=== PATIENT | male | born 1940 | race Two or more races ===

== ENCOUNTER 2019-02-01 18:38 | Emergency (ER) | payer OTHER ==
[~2019-02-01] VITALS: Ht 170.2 cm; Wt 79.4 kg
[2019-02-01 19:17] VITALS: BP 129/71
[2019-02-01] MEDS ORDERED: LACTULOSE 20Gm/30ML SOLN PO ONE (21:30)
== END 2019-02-01 21:32 | disposition home or self-care (01) ==
LOC: ER 18:38
DX: K59.00 Constipation, unspecified (principal); I10 Essential (primary) hypertension; E11.9 Type 2 diabetes mellitus without complications; Z88.0 Allergy status to penicillin
CPT/HCPCS: 74018; 82962

== ENCOUNTER 2023-06-21 11:29 | Emergency (ER) | payer OTHER ==
[~2023-06-21] VITALS: Ht 170.2 cm; Wt 70.3 kg
[2023-06-21 13:13] VITALS: BP 143/86; PULSE 71; RESP 18; TEMP 97.8; O2SAT 100
[2023-06-21] MEDS ORDERED: ACET-1080 PO (13:23)
[2023-06-21] MEDS: ACETAMINOPHEN 500 MG TAB PO ONE (13:34)
== END 2023-06-21 13:48 | disposition home or self-care (01) ==
LOC: ER 11:29
DX: S22.32XA Fracture of one rib, left side, initial encounter for closed fracture (principal); Z88.0 Allergy status to penicillin; W03.XXXA Other fall on same level due to collision with another person, initial encounter; Y93.89 Activity, other specified; Y92.89 Other specified places as the place of occurrence of the external cause; Y99.8 Other external cause status
CPT/HCPCS: 71101

== ENCOUNTER 2023-07-20 17:03 | Inpatient (IN) | payer OTHER ==
[~2023-07-20] VITALS: Ht 170.2 cm; Wt 70.6 kg
[~2023-07-20 17:03] MED LIST: ACET-1080 PO
[2023-07-20 19:36] LABS: Basophils # (auto) 0 10 ^3/uL (0-0.2); Basophils % (auto) 0.4 % (0.0-2.0); Eosinophils # (auto) 0.2 10 ^3/uL (0-0.8); Eosinophils % (auto) 2.1 % (0.0-7.0); Hematocrit 39.1 % (41.0-53.0); Hemoglobin 13.3 g/dL (13.5-17.5); Lymphocytes # (auto) 1.4 10 ^3/uL (0.4-5.4); Lymphocytes % (auto) 14.7 % (10.0-50.0); Mean Corpuscular Hemoglobin 30.6 pg (28.0-32.0); Mean Corpuscular Volume 89.9 fL (80.0-100.0); Monocytes # (auto) 1.5 10 ^3/uL (0-1.3); Monocytes % (auto) 16.1 % (0.0-12.0); Neutrophils # (auto) 6.2 10 ^3/uL (1.6-8.6); Neutrophils % (auto) 66.7 % (37.0-80.0); Red Blood Cells 4.35 10^6/uL (4.5-5.90); Red Cell Distribution Width 15.6 % (11.8-14.3); White Blood Cell 9.3 10^3/uL (4.4-10.8)
[2023-07-20 19:57] LABS: Alanine Aminotransferase 20 U/L (7-40); Albumin 4.2 g/dL (3.2-4.8); Alkaline Phosphatase 155 U/L (46-116); Anion Gap 5 (5-15); Aspartate Aminotransferase 17 U/L (13-40); BUN/Creatinine Ratio 21.6 (10.0-20.0); Blood Urea Nitrogen 21 mg/dL (9-23); Calcium 8.8 mg/dL (8.5-10.1); Carbon Dioxide 28 mmol/L (20-30); Chloride 107 mmol/L (98-107); Glucose 135 mg/dL (74-106); Potassium 3.7 mmol/L (3.5-5.1); Sodium 140 mmol/L (136-145)
[2023-07-20 19:58] LABS: Bilirubin, Total 0.4 mg/dL (0.2-1.0); Total Protein 7.1 g/dL (5.7-8.2)
[2023-07-20] MEDS ORDERED: ONDANSETRON HCL 4 MG/2 ML VIAL IV PRN (22:30)
[2023-07-20] MEDS ORDERED: DOCUSATE SOD 100 MG CAP PO PRN (22:30)
[2023-07-20] MEDS ORDERED: MORPHINE SULFATE INJ 2 MG/ml SYRG IV PRN ×2 (22:30→23:45)
[2023-07-20] MEDS ORDERED: ACETAMINOPHEN 325 MG TAB PO PRN (22:30)
[2023-07-20] MEDS ORDERED: NITROGLYCERIN 0.4 MG SL TAB SL PRN (23:45)
[2023-07-21] VITALS (8 sets, daily range): BP systolic 127–166; BP diastolic 69–87; PULSE 62–83; RESP 16–20; TEMP 97.4–98.3; O2SAT 98–100
[2023-07-21] MEDS: IOHEXOL 350 MG/ML 100ML IJ ONE (01:02)
[2023-07-21] MEDS: HYDROcodone-ACET 5/325MG TAB PO PRN (04:21)
[2023-07-21] MEDS: SODIUM CHLOR 0.9% PF (SALINE LOCK) 10ML VIAL/SYR IV SCH (05:25)
[2023-07-21] MEDS ORDERED: ASPI-543 PO (05:38)
[2023-07-21] MEDS ORDERED: METO25TA93 PO (05:38)
[2023-07-21] MEDS ORDERED: LISI40TA16 PO (05:38)
[2023-07-21] MEDS ORDERED: ATOR-507 PO (05:39)
[2023-07-21 05:48] LABS: Alanine Aminotransferase 13 U/L (7-40); Albumin 3.9 g/dL (3.2-4.8); Alkaline Phosphatase 132 U/L (46-116); Anion Gap 3 (5-15); Aspartate Aminotransferase 13 U/L (13-40); BUN/Creatinine Ratio 20.2 (10.0-20.0); Bilirubin, Total 0.5 mg/dL (0.2-1.0); Blood Urea Nitrogen 20 mg/dL (9-23); Calcium 8.6 mg/dL (8.5-10.1); Carbon Dioxide 30 mmol/L (20-30); Chloride 109 mmol/L (98-107); Glucose 96 mg/dL (74-106); Potassium 3.5 mmol/L (3.5-5.1); Sodium 142 mmol/L (136-145); Total Protein 6.7 g/dL (5.7-8.2)
[2023-07-21 06:05] LABS: Basophils # (auto) 0 10 ^3/uL (0-0.2); Basophils % (auto) 0.4 % (0.0-2.0); Eosinophils # (auto) 0.2 10 ^3/uL (0-0.8); Eosinophils % (auto) 2.1 % (0.0-7.0); Hematocrit 36.7 % (41.0-53.0); Hemoglobin 12.5 g/dL (13.5-17.5); Lymphocytes # (auto) 1.3 10 ^3/uL (0.4-5.4); Lymphocytes % (auto) 16.2 % (10.0-50.0); Mean Corpuscular Hemoglobin 30.4 pg (28.0-32.0); Mean Corpuscular Volume 89.5 fL (80.0-100.0); Monocytes # (auto) 1.4 10 ^3/uL (0-1.3); Monocytes % (auto) 17.8 % (0.0-12.0); Neutrophils % (auto) 63.5 % (37.0-80.0); Nucleated Red Blood Cells % 0.1 %; Red Cell Distribution Width 15.1 % (11.8-14.3); White Blood Cell 7.9 10^3/uL (4.4-10.8)
[2023-07-21] MEDS: METOPROLOL TARTRATE 25 MG TAB PO SCH (08:59)
[2023-07-21] MEDS: ENOXAPARIN SOD 40 MG/0.4 ML SYRINGE SC SCH (08:59)
[2023-07-21] MEDS: hydrALAZINE HCL 20 MG/ML VL IV PRN (15:07)
[2023-07-21] MEDS: ATORVASTATIN 20 MG TAB PO SCH (21:48)
[2023-07-22 05:00] VITALS: BP 138/55; PULSE 64; RESP 16; TEMP 98.5; O2SAT 100
[2023-07-22 08:00] VITALS: PULSE 69; RESP 18; O2SAT 99
[2023-07-22 08:27] VITALS: BP 133/74; PULSE 69; RESP 18; TEMP 98.4; O2SAT 99
[2023-07-22 10:40] VITALS: BP 133/74; PULSE 69; RESP 18; TEMP 98.4; O2SAT 99
== END 2023-07-22 12:15 | disposition home or self-care (01) | DRG 563 ==
LOC: ER 17:03 → TELE 23:34 → TELE-CENTR 07-21 03:46
PROVIDERS: ADMIT Internal Medicine Geriatric Medicine; ATTEND Internal Medicine Geriatric Medicine
DX: S52.614A Nondisplaced fracture of right ulna styloid process, initial encounter for closed fracture (principal); S22.42XA Multiple fractures of ribs, left side, initial encounter for closed fracture; S52.501A Unspecified fracture of the lower end of right radius, initial encounter for closed fracture; R91.8 Other nonspecific abnormal finding of lung field; M47.892 Other spondylosis, cervical region; Z88.0 Allergy status to penicillin; W01.0XXA Fall on same level from slipping, tripping and stumbling without subsequent striking against object, initial encounter; Y93.89 Activity, other specified; Y92.098 Other place in other non-institutional residence as the place of occurrence of the external cause; Y99.9 Unspecified external cause status
CPT/HCPCS: 36415; 70450; 71250; 71275; 72125; 73070; 73090; 73110; 73130; 74176; 80053; 83605; 83880; 84484; 85025; 85379; 87040; G0378

== ENCOUNTER 2023-10-08 13:09 | Inpatient (IN) | payer OTHER ==
[~2023-10-08] VITALS: Ht 165.1 cm; Wt 68.2 kg
[~2023-10-08 13:09] MED LIST changes: +ASPI-543 PO; +ATOR-507 PO; +LISI40TA16 PO; +METO25TA93 PO
[2023-10-08] MEDS: SODIUM CHLORIDE 0.9% 500 ML IVB ONE (14:48)
[2023-10-08 14:50] LABS: Basophils # (auto) 0.1 10 ^3/uL (0-0.2); Basophils % (auto) 1.2 % (0.0-2.0); Eosinophils # (auto) 0.2 10 ^3/uL (0-0.8); Eosinophils % (auto) 2.5 % (0.0-7.0); Hematocrit 40.8 % (41.0-53.0); Lymphocytes # (auto) 1.4 10 ^3/uL (0.4-5.4); Lymphocytes % (auto) 19.4 % (10.0-50.0); Mean Corpuscular Hemoglobin 29.9 pg (28.0-32.0); Mean Corpuscular Hgb Conc. 34.2 g/dL (32.0-36.0); Mean Corpuscular Volume 87.3 fL (80.0-100.0); Monocytes # (auto) 0.8 10 ^3/uL (0-1.3); Monocytes % (auto) 10.5 % (0.0-12.0); Neutrophils # (auto) 4.8 10 ^3/uL (1.6-8.6); Neutrophils % (auto) 66.4 % (37.0-80.0); Platelet Count (auto) 255 10^3/uL (140-450); Red Blood Cells 4.67 10^6/uL (4.5-5.90); Red Cell Distribution Width 14.5 % (11.8-14.3); White Blood Cell 7.2 10^3/uL (4.4-10.8)
[2023-10-08 15:09] LABS: Chloride 107 mmol/L (98-107); Potassium 4.4 mmol/L (3.5-5.1); Sodium 141 mmol/L (136-145)
[2023-10-08 15:10] LABS: Anion Gap 3 (5-15); Carbon Dioxide 31 mmol/L (20-30)
[2023-10-08 15:11] LABS: Calcium 8.8 mg/dL (8.7-10.4)
[2023-10-08 15:15] LABS: BUN/Creatinine Ratio 14.9 (10.0-20.0); Blood Urea Nitrogen 14 mg/dL (9-23); Glucose 82 mg/dL (74-106)
[2023-10-08] MEDS ORDERED: DOCUSATE SOD 100 MG CAP PO PRN (20:30)
[2023-10-08] MEDS ORDERED: ACETAMINOPHEN 325 MG TAB PO PRN (20:30)
[2023-10-08] MEDS ORDERED: MORPHINE SULFATE INJ 2 MG/ml SYRG IV PRN (20:30)
[2023-10-08] MEDS ORDERED: HYDROcodone-ACET 5/325MG TAB PO PRN (20:30)
[2023-10-08] MEDS ORDERED: ONDANSETRON HCL 4 MG/2 ML VIAL IV PRN (20:30)
[2023-10-08] MEDS ORDERED: NITROGLYCERIN 0.4 MG SL TAB SL PRN (20:30)
[2023-10-08] MEDS: SODIUM CHLOR 0.9% PF (SALINE LOCK) 10ML VIAL/SYR IV SCH (23:14)
[2023-10-08] MEDS: ATORVASTATIN 20 MG TAB PO SCH (23:14)
[2023-10-09] MEDS: LOPERAMIDE HCL 2 MG CAP/TAB PO ONE (03:49)
[2023-10-09 05:07] LABS: Basophils # (auto) 0 10 ^3/uL (0-0.2); Basophils % (auto) 0.5 % (0.0-2.0); Eosinophils # (auto) 0.1 10 ^3/uL (0-0.8); Eosinophils % (auto) 1.5 % (0.0-7.0); Hematocrit 38.6 % (41.0-53.0); Hemoglobin 13.3 g/dL (13.5-17.5); Lymphocytes # (auto) 1.1 10 ^3/uL (0.4-5.4); Lymphocytes % (auto) 14.7 % (10.0-50.0); Mean Corpuscular Hemoglobin 29.8 pg (28.0-32.0); Mean Corpuscular Hgb Conc. 34.3 g/dL (32.0-36.0); Mean Corpuscular Volume 86.8 fL (80.0-100.0); Monocytes # (auto) 0.7 10 ^3/uL (0-1.3); Monocytes % (auto) 9.4 % (0.0-12.0); Neutrophils # (auto) 5.4 10 ^3/uL (1.6-8.6); Neutrophils % (auto) 73.9 % (37.0-80.0); Platelet Count (auto) 233 10^3/uL (140-450); Red Blood Cells 4.45 10^6/uL (4.5-5.90); Red Cell Distribution Width 14.7 % (11.8-14.3); White Blood Cell 7.3 10^3/uL (4.4-10.8)
[2023-10-09 05:19] LABS: Alanine Aminotransferase 15 U/L (7-40); Albumin 3.7 g/dL (3.2-4.8); Alkaline Phosphatase 108 U/L (46-116); Anion Gap 8 (5-15); BUN/Creatinine Ratio 18.4 (10.0-20.0); Blood Urea Nitrogen 14 mg/dL (9-23); Calcium 8.6 mg/dL (8.7-10.4); Carbon Dioxide 25 mmol/L (20-30); Chloride 110 mmol/L (98-107); Glucose 94 mg/dL (74-106); Potassium 3.4 mmol/L (3.5-5.1); Sodium 143 mmol/L (136-145)
[2023-10-09 05:20] LABS: Aspartate Aminotransferase 17 U/L (13-40); Bilirubin, Total 0.3 mg/dL (0.2-1.0); Total Protein 6.7 g/dL (5.7-8.2)
[2023-10-09 07:47] VITALS: PULSE 85; RESP 16; O2SAT 95
[2023-10-09] MEDS: FAMOTIDINE (10MG/ML) 2ML VL IV SCH (09:53)
[2023-10-09] MEDS: LOPERAMIDE HCL 2 MG CAP/TAB PO PRN (09:53)
[2023-10-09] MEDS: ASPirin 81 mg TAB PO SCH (09:53)
[2023-10-09] MEDS: hydrALAZINE HCL 20 MG/ML VL IV PRN (16:02)
[2023-10-09] MEDS: POTASSIUM CHL 20 Meq TABLET PO ONE (17:31)
[2023-10-09] MEDS: D5W/SOD CHL 0.45%/KCL 20MEQ 1,000 ML IV SCH (18:08)
[2023-10-09 19:58] VITALS: PULSE 80; RESP 17; O2SAT 99
[2023-10-09 20:03] LABS: Urine Bacteria None Seen /hpf (None Seen)
[2023-10-09 20:17] LABS: Urine Blood Negative /uL (Negative); Urine Clarity Clear (Clear); Urine Color Light-Yellow (Yellow); Urine Protein, UAD Negative (Negative); Urine Specific Gravity 1.013 (1.001-1.035); Urine Urobilinogen Normal (Negative); Urine WBC 2 /hpf (0 - 3); Urine pH 6.5 (5.0-9.0)
[2023-10-09 22:37] VITALS: BP 156/74; PULSE 69; RESP 19; TEMP 98.2; O2SAT 99
[2023-10-09 23:19] VITALS: BP 156/74; PULSE 69; PULSE 81; RESP 18; RESP 19; TEMP 98.2; O2SAT 100; O2SAT 98
[2023-10-10] VITALS (8 sets, daily range): BP systolic 108–141; BP diastolic 53–81; PULSE 68–102; RESP 19–20; TEMP 97.9–98.4; O2SAT 97–99
[2023-10-10 05:48] LABS: Basophils # (auto) 0 10 ^3/uL (0-0.2); Basophils % (auto) 0.5 % (0.0-2.0); Eosinophils # (auto) 0.1 10 ^3/uL (0-0.8); Eosinophils % (auto) 1.5 % (0.0-7.0); Hematocrit 36.2 % (41.0-53.0); Hemoglobin 12.5 g/dL (13.5-17.5); Lymphocytes # (auto) 0.9 10 ^3/uL (0.4-5.4); Lymphocytes % (auto) 13.5 % (10.0-50.0); Mean Corpuscular Hemoglobin 30.2 pg (28.0-32.0); Mean Corpuscular Hgb Conc. 34.5 g/dL (32.0-36.0); Mean Corpuscular Volume 87.5 fL (80.0-100.0); Monocytes # (auto) 0.8 10 ^3/uL (0-1.3); Monocytes % (auto) 11.8 % (0.0-12.0); Neutrophils # (auto) 4.7 10 ^3/uL (1.6-8.6); Neutrophils % (auto) 72.7 % (37.0-80.0); Platelet Count (auto) 211 10^3/uL (140-450); Red Blood Cells 4.14 10^6/uL (4.5-5.90); Red Cell Distribution Width 14.4 % (11.8-14.3); White Blood Cell 6.5 10^3/uL (4.4-10.8)
[2023-10-10 06:08] LABS: Alanine Aminotransferase 12 U/L (7-40); Alkaline Phosphatase 95 U/L (46-116); Calcium 8.4 mg/dL (8.7-10.4); Carbon Dioxide 26 mmol/L (20-30); Chloride 110 mmol/L (98-107); Glucose 151 mg/dL (74-106); Potassium 4.1 mmol/L (3.5-5.1)
[2023-10-10 06:09] LABS: Anion Gap 4 (5-15); Aspartate Aminotransferase 15 U/L (13-40); BUN/Creatinine Ratio 11.4 (10.0-20.0); Bilirubin, Total 0.3 mg/dL (0.2-1.0); Blood Urea Nitrogen 10 mg/dL (9-23); Magnesium 1.9 mg/dL (1.6-2.6); Sodium 140 mmol/L (136-145); Total Protein 5.7 g/dL (5.7-8.2)
[2023-10-10] MEDS ORDERED: DOCUSATE SOD 100 MG CAP PO ONE (11:15)
[2023-10-10] MEDS: TAMSULOSIN HYDROCHLORIDE 0.4 MG CAP PO ONE (13:03)
[2023-10-10] MEDS ORDERED: TAMSULOSIN HYDROCHLORIDE 0.4 MG CAP PO SCH (18:00)
[2023-10-10] MEDS: DOCUSATE SOD 100 MG CAP PO SCH (21:09)
[2023-10-11 01:00] VITALS: BP 145/82; PULSE 85; RESP 18; TEMP 98.2; O2SAT 99
[2023-10-11 05:00] VITALS: BP 136/80; PULSE 72; RESP 18; TEMP 98.3; O2SAT 97
[2023-10-11 08:00] VITALS: PULSE 76
[2023-10-11 09:00] VITALS: BP 154/87; PULSE 71; RESP 16; TEMP 98.1; O2SAT 98
[2023-10-11] MEDS ORDERED: TAMS-35 PO (13:06)
[2023-10-11 13:19] VITALS: BP 164/84; PULSE 68; RESP 16; TEMP 97.6; O2SAT 100
[2023-10-11 16:47] VITALS: BP 144/82; PULSE 116; RESP 18; TEMP 98; O2SAT 99
[2023-10-11] MEDS: TAMSULOSIN HYDROCHLORIDE 0.4 MG CAP PO SCH (17:39)
== END 2023-10-11 18:45 | disposition home or self-care (01) | DRG 641 ==
LOC: ER 13:09 → TELE 20:27 → TELE-WESTW 10-09 22:17
PROVIDERS: ADMIT Nurse Practitioner Family; ATTEND Internal Medicine Geriatric Medicine
DX: E86.0 Dehydration (principal); A04.72 Enterocolitis due to Clostridium difficile, not specified as recurrent; N40.1 Benign prostatic hyperplasia with lower urinary tract symptoms; R33.8 Other retention of urine; K59.00 Constipation, unspecified; E11.9 Type 2 diabetes mellitus without complications; E78.5 Hyperlipidemia, unspecified; I10 Essential (primary) hypertension; E87.6 Hypokalemia; C61 Malignant neoplasm of prostate; Z88.0 Allergy status to penicillin
CPT/HCPCS: 36415; 74176; 80048; 80053; 81001; 82962; 83735; 84153; 85025; 96360; G0378; J3490

== ENCOUNTER 2023-12-03 09:53 | Emergency (ER) | payer OTHER, MEDICAID ==
[~2023-12-03] VITALS: Ht 170.2 cm; Wt 71.8 kg
[~2023-12-03 09:53] MED LIST changes: -ASPI-543 PO; -ATOR-507 PO; -LISI40TA16 PO; -METO25TA93 PO; +TAMS-35 PO
[2023-12-03 10:52] LABS: Basophils # (auto) 0 10 ^3/uL (0-0.2); Basophils % (auto) 0.7 % (0.0-2.0); Eosinophils # (auto) 0.1 10 ^3/uL (0-0.8); Eosinophils % (auto) 1.6 % (0.0-7.0); Hematocrit 41.8 % (41.0-53.0); Hemoglobin 13.9 g/dL (13.5-17.5); Lymphocytes % (auto) 16.4 % (10.0-50.0); Mean Corpuscular Hemoglobin 29.4 pg (28.0-32.0); Mean Corpuscular Hgb Conc. 33.2 g/dL (32.0-36.0); Mean Corpuscular Volume 88.3 fL (80.0-100.0); Monocytes # (auto) 0.5 10 ^3/uL (0-1.3); Monocytes % (auto) 7.9 % (0.0-12.0); Neutrophils # (auto) 4.6 10 ^3/uL (1.6-8.6); Neutrophils % (auto) 73.4 % (37.0-80.0); Nucleated Red Blood Cells % 0.1 %; Platelet Count (auto) 255 10^3/uL (140-450); Red Blood Cells 4.74 10^6/uL (4.5-5.90); White Blood Cell 6.2 10^3/uL (4.4-10.8)
[2023-12-03 11:01] LABS: Chloride 109 mmol/L (98-107); Potassium 4.6 mmol/L (3.5-5.1); Sodium 142 mmol/L (136-145)
[2023-12-03 11:03] LABS: Anion Gap 5 (5-15); Calcium 8.9 mg/dL (8.7-10.4); Carbon Dioxide 28 mmol/L (20-31)
[2023-12-03 11:08] LABS: BUN/Creatinine Ratio 12.8 (10.0-20.0); Blood Urea Nitrogen 12 mg/dL (9-23); Glucose 133 mg/dL (74-106)
[2023-12-03] MEDS ORDERED: MAGN400S25 PO (14:50)
[2023-12-03 15:23] VITALS: BP 134/63; PULSE 85; RESP 16; TEMP 97.8; O2SAT 98
== END 2023-12-03 15:38 | disposition admitted as inpatient to this hospital (09) ==
LOC: ER 09:53 → EDBD 09:53 → ER 15:23
DX: R00.1 Bradycardia, unspecified (principal); R55 Syncope and collapse; E11.9 Type 2 diabetes mellitus without complications; E78.5 Hyperlipidemia, unspecified; Z88.0 Allergy status to penicillin; Z79.899 Other long term (current) drug therapy
CPT/HCPCS: 36415; 70450; 71045; 80048; 84484; 85025; 93005

== ENCOUNTER 2024-03-31 16:36 | Emergency (ER) | payer OTHER, MEDICAID ==
[~2024-03-31] VITALS: Ht 175.3 cm; Wt 72.0 kg
[~2024-03-31 16:36] MED LIST changes: +MAGN400S25 PO
--- NOTE | 2024-03-31 18:04 | ED.PDOC ---
History of Present Illness HPI Comments 83-year-old male brought in by EMS presents with a chief complaint of right shoulder pain x onset today s/p fall. Patient states that he had a mechanical slip and fall today while at home and landed on his right shoulder. Patient has lump to his right distal shoulder. Patient denies hitting his head or losing consciousness. Patient does have a decrease in ROM to the right arm. Patient is A/Ox4. Chief Complaint: Upper Extremity Time Seen by MD: 18:00 Primary Care Provider: unknown Reviewed Notes: Medications, Allergies Allergies: Coded Allergies: Penicillins (Verified Allergy, Unknown, 02/01/19) Home Meds Active Scripts Magnesium Hydroxide (Milk Of Magnesia) 400 Mg/5 Ml Ann, 20 ML PO HS for 30 Days, #1000 ML Prov:RAYSA STONER MD 12/03/23 Tamsulosin Hcl (Flomax) 0.4 Mg Cap, 0.4 MG PO QPM for 30 Days, #30 CAP 5 Refills Prov:RAYSA STONER MD 10/11/23 Acetaminophen (Tylenol 8 Hour Arthritis) 650 Mg Tab, 650 MG PO TID, #30 TAB Prov:COURTNEY KING 06/21/23 Information Source: Patient, Emergency Med Personnel Mode of Arrival: EMS Severity: Moderate Timing: Hours Duration: Since onset Prehospital treatment: None Past Medical History PAST MEDICAL HISTORY: DM, High Lipids, HTN Surgical History: Denies all surgeries Family History Family History: Reviewed,noncontributory to illness, Unknown Social History Smoker: Non-Smoker Alcohol: Denies ETOH Use Drugs: Denies Drug Use Lives In: Home Constitutional: denies: chills, diaphoresis, fatigue, fever, malaise, sweats, weakness, others EENTM: denies: blurred vision, double vision, ear bleeding, ear discharge, ear drainage, ear pain, ear ringing, eye pain, eye redness, hearing loss, mouth pain, mouth swelling, nasal discharge, nose bleeding, nose congestion, nose pain, photophobia, tearing, throat pain, throat swelling, voice changes, others Respiratory: denies: cough, hemoptysis, orthopnea, SOB at rest, shortness of breath, SOB with excertion, stridor, wheezing, others Cardiovascular: denies: chest pain, dizzy spells, diaphoresis, Dyspnea on exertion, edema, irregular heart beat, left arm pain, lightheadedness, palpitations, PND, syncope, others Gastrointestinal: denies: abdomen distended, abdominal pain, blood streaked bowels, constipated, diarrhea, dysphagia, difficulty swallowing, hematemesis, melena, nausea, poor appetite, poor fluid intake, rectal bleeding, rectal pain, vomiting, others Genitourinary: denies: burning, dysuria, flank pain, frequency, hematuria, incontinence, penile discharge, penile sore, pain, testicle pain, testicle swelling, urgency, others Neurological: denies: dizziness, fainting, headache, left sided numbness, left sided weakness, numbness, paresthesia, pre-existing deficit, right sided numbness, right sided weakness, seizure, speech problems, tingling, tremors, weakness, others Musculoskeletal: reports: muscle pain; denies: back pain, gout, joint pain, joint swelling, muscle stiffness, neck pain, others Integumetry: denies: bruises, change in color, change in hair/nails, dryness, laceration, lesions, lumps, rash, wounds, others Allergic/Immunocompromised: denies: Difficulty Healing, Frequent Infections, Hives, Itching, others Hematologic/Lymphatic: denies: anemia, blood clots, easy bleeding, easy bruising, swollen glands, others Endocrine: denies: excessive hunger, excessive sweating, excessive thirst, excessive urination, flushing, intolerance to cold, intolerance to heat, unexplained weight gain, unexplained weight loss, others Psychiatric: denies: anxiety, bipolar disorder, depression, hopeless, panic disorder, schizophrenia, sleepless, suicidal, others All Other Systems: Reviewed and Negative Physical Exam General Appearance: Mild Distress, Normal HEENT: Normal ENT Inspection, Pharynx Normal, TMs Normal Neck: Full Range of Motion, Non-Tender, Normal, Normal Inspection Respiratory: Chest Non-Tender, Lungs Clear, No Accessory Muscle Use, No Respiratory Distress, Normal Breath Sounds Cardiovascular: No Edema, No JVD, No Murmur, No Gallop, Normal Peripheral Pulses, Regular Rate/Rhythm Breast Exam: Deferred Gastrointestinal: No Organomegaly, Non Tender, No Pulsatile Mass, Normal Bowel Sounds, Soft Genitalia: Deferred Pelvic: Deferred Rectal: Deferred Extremities: Decreased range of motion, No calf tenderness, Normal capillary refill, No pedal edema, Tender Musculoskeletal : Apperance: Normal Neurologic: Alert, cage tender II-XII nml as Tested, No Motor Deficits, Normal Affect, Normal Mood, No Sensory Deficits Cerebellar Function: Normal Reflexes: Normal Skin: Dry, Normal Color, Warm Lymphatic: No Adenopathy Was a procedure done? Was a procedure done?: No Differential Dx Considerations may include: Dislocation, AC separation, collarbone fracture, X-Ray, Labs, Meds, VS Vital Signs Date Time Temp Pulse Resp B/P (MAP) Pulse Ox O2 Delivery O2 Flow Rate FiO2 03/31/24 16:40 97.9 88 18 169/79 (109) 96 X-Ray, Labs, Meds, VS Comment X-ray right shoulder shows grade 4 AC separation Spoke with Dr. Combs, operations staff specialist security on-call, he recommends sling and he can follow up outpatient for further evaluation. Time of 1ST Reevaluation: 18:31 Reevaluation 1ST: Unchanged Patient Education/Counseling: Diagnosis, Treatment, Prognosis, Need For Follow Up (Follow up with Dr. solis next available appointment) Family Education/Counseling: Diagnosis, Treatment, Prognosis Departure 1 Departure Time of Disposition: 18:27 Impression: Primary Impression: AC separation, type 4 Qualified Codes: S43.101A - Unspecified dislocation of right acromioclavicular joint, initial encounter Disposition: HOME / SELF CARE / HOMELESS Condition: Fair Discharged With: Self Critical Care Note Critical Care Time?: No Stability Stability form required: No Heart Score Heart Score: Heart Score Response (Comments) Value History N/A 0 EKG N/A 0 Age N/A 0 Risk Factors N/A 0 Troponin N/A 0 Total 0 I personally scribed for PATRICK LLOYD ([email or web address]) on 03/31/24 at 18:04. Electronically submitted by Jimmy Stephens ([email or web address]). PATRICK LLOYD Mar 31, 2024 18:04
--- NOTE | 2024-03-31 18:29 | DVH ---
CLINICAL INDICATION: fall TECHNIQUE: 3 radiographic views of the right shoulder were obtained. Comparison: Chest radiograph 12/03/2023 FINDINGS/IMPRESSION: There is no evidence of acute fracture or dislocation the glenohumeral joint. 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 Correlate for grade 3 AC joint injury. The visualized lungs are clear.
[2024-03-31 18:39] VITALS: BP 144/77; PULSE 77; RESP 17; TEMP 98.1; O2SAT 96
== END 2024-03-31 18:40 | disposition home or self-care (01) ==
LOC: EDUNIT# 16:36 → ER 16:36 → EDBD 16:36 → ER 18:40
DX: E11.9 Type 2 diabetes mellitus without complications (principal); E78.5 Hyperlipidemia, unspecified; I10 Essential (primary) hypertension; Z88.0 Allergy status to penicillin; X58.XXXA Exposure to other specified factors, initial encounter; Y93.89 Activity, other specified; Y92.89 Other specified places as the place of occurrence of the external cause; Y99.8 Other external cause status
CPT/HCPCS: 29105; 73030